=== PATIENT | female | born 1940 | race African-American/Black ===

== ENCOUNTER 2019-02-18 17:20 | Outpatient (CLI) | payer MEDICARE, BC, OTHER ==
--- NOTE | 2019-02-18 17:46 | RAD ---
EXAM: XR Chest Pa Lat STANDARD PROVIDED CLINICAL HISTORY: Pneumonia COMPARISON: 04/13/2014 FINDINGS: Cardiac silhouette remains enlarged. Median sternotomy changes and vascular calcifications are again seen. No lobar consolidation, pleural fluid or pneumothorax apparent. IMPRESSION: No evidence for lobar consolidation.
== END 2019-02-18 17:21 | disposition home or self-care (01) ==
LOC: BURRAD 17:20
PROVIDERS: ATTEND Family Medicine
DX: J18.9 Pneumonia, unspecified organism (principal)
CPT/HCPCS: 71046

== ENCOUNTER 2019-12-17 08:00 | Outpatient (CLI) | payer MEDICARE, MEDICAID ==
--- NOTE | 2019-12-17 16:42 | RAD ---
CHEST 2 VIEWS: Date: 12/17/2019 Comparison made with the prior study of 02/18/2019. Mild to moderate cardiomegaly is present. There is some mild congestion of the upper lobe vessels. So me lingular scarring is seen. There is slight elevation of the left hemidiaphragm. No lobar consolida tions were present. IMPRESSION: Mild congestive change. POS: HOME
== END 2019-12-17 08:01 | disposition home or self-care (01) ==
LOC: BURLAB 08:00 → BURRAD 08:01
PROVIDERS: ATTEND Registered Nurse Community Health
DX: I50.9 Heart failure, unspecified (principal)
CPT/HCPCS: 71046; 83880

== ENCOUNTER 2020-09-30 09:13 | Outpatient (CLI) | payer MEDICARE, MEDICAID ==
[2020-09-30 09:45] LABS: Anion Gap 15 mmol/L (10-20); BUN (Urea Nitrogen) 15 mg/dL (9.8-20.1); Calc. Creatinine Clearance 0 mL/min (70-130); Carbon Dioxide 30 mmol/L (23-31); Chloride 100 mmol/L (98-107); Glucose 143 mg/dL (83-110); Potassium 4.2 mmol/L (3.5-5.1); Sodium 141 mmol/L (136-145)
== END 2020-09-30 09:14 | disposition home or self-care (01) ==
LOC: BURMANOR 09:13
PROVIDERS: ATTEND Family Medicine
DX: E87.6 Hypokalemia (principal)
CPT/HCPCS: 80048

== ENCOUNTER 2021-11-01 08:35 | Outpatient (CLI) | payer MEDICARE, BC, OTHER | END 2021-11-01 08:36 | disposition home or self-care (01) | LOC: BURMANOR 08:35 | PROVIDERS: ATTEND Nurse Practitioner Family | DX: R06.02 Shortness of breath (principal); Z20.822 Contact with and (suspected) exposure to COVID-19 | CPT/HCPCS: U0003; U0005 ==

== ENCOUNTER 2022-01-09 15:25 | Outpatient (CLI) | payer MEDICARE, BC ==
[2022-01-09 15:53] LABS: Bilirubin Negative (Negative); Blood, Urine Negative (Negative); Clarity Cloudy (Clear); Glucose, Urine (Dipstick) 500 mg/dL (Negative); Ketone, Urine Negative (Negative); Leukocyte Small (Negative); Nitrite Positive (Negative); Protein, Urine (Dipstick) Negative (Neg-Trace); Specific Gravity, Urine 1.015 (1.005-1.030); Urobilinogen 0.2 mg/dL (Less than 2); pH, Urine 6.5 (5.0-9.0)
== END 2022-01-09 15:26 | disposition home or self-care (01) ==
LOC: BURMANOR 15:25
PROVIDERS: ATTEND Nurse Practitioner Family
DX: N39.0 Urinary tract infection, site not specified (principal)
CPT/HCPCS: 81003; 87077; 87086; 87186

== ENCOUNTER 2022-01-15 13:29 | Emergency (ER) | payer MEDICARE, BC ==
[2022-01-15 14:44] LABS: Bilirubin Negative (Negative); Blood, Urine Negative (Negative); Clarity Clear (Clear); Glucose, Urine (Dipstick) 250 mg/dL (Negative); Ketone, Urine Negative (Negative); Leukocyte Negative (Negative); Nitrite Negative (Negative); Protein, Urine (Dipstick) Negative (Neg-Trace); Specific Gravity, Urine 1.015 (1.005-1.030); Urobilinogen 0.2 mg/dL (Less than 2)
[2022-01-15] MEDS ORDERED: Phenazopyridine HCl 95 MG TAB ONE (16:05)
== END 2022-01-15 15:03 ==
LOC: BURERS 13:29
DX: R30.0 Dysuria (principal); I25.2 Old myocardial infarction; I11.0 Hypertensive heart disease with heart failure; I50.9 Heart failure, unspecified; I48.91 Unspecified atrial fibrillation; Z86.73 Personal history of transient ischemic attack (TIA), and cerebral infarction without residual deficits
CPT/HCPCS: 81003; 87086; 99283

== ENCOUNTER 2022-01-24 07:31 | Outpatient (CLI) | payer MEDICARE, BC, OTHER ==
[2022-01-24 18:32] LABS: Bilirubin Negative (Negative); Blood, Urine Negative (Negative); Clarity Cloudy (Clear); Glucose, Urine (Dipstick) 500 mg/dL (Negative); Ketone, Urine Negative (Negative); Leukocyte Moderate (Negative); Nitrite Negative (Negative); Protein, Urine (Dipstick) 30 mg/dL (Neg-Trace); Specific Gravity, Urine 1.015 (1.005-1.030); Urobilinogen 0.2 mg/dL (Less than 2); pH, Urine 8.5 (5.0-9.0)
[2022-01-24 18:44] LABS: ALT (SGPT) 36 U/L (8-55); AST (SGOT) 21 U/L (5-34); Albumin 3.8 g/dL (3.4-4.8); Alkaline Phosphatase 92 U/L (40-110); Anion Gap 18 mmol/L (10-20); BUN (Urea Nitrogen) 40 mg/dL (9.8-20.1); Bilirubin, Total 0.2 mg/dL (0.2-1.2); Calc. Creatinine Clearance 0 mL/min (70-130); Carbon Dioxide 26 mmol/L (23-31); Chloride 102 mmol/L (98-107); Estimated GFR 46; Globulin 3.9 g/dL (2.4-3.5); Glucose 175 mg/dL (83-110); Potassium 4.8 mmol/L (3.5-5.1); Protein, Total 7.7 g/dL (5.8-8.1); Sodium 141 mmol/L (136-145)
== END 2022-01-24 07:32 | disposition home or self-care (01) ==
LOC: BURMANOR 07:31
PROVIDERS: ATTEND Nurse Practitioner Family
DX: N39.0 Urinary tract infection, site not specified (principal); E11.9 Type 2 diabetes mellitus without complications
CPT/HCPCS: 80053; 81003; 87077; 87086

== ENCOUNTER 2022-03-12 15:57 | Outpatient (CLI) | payer MEDICARE, BC, OTHER | END 2022-03-12 15:58 | disposition home or self-care (01) | LOC: BURRAD 15:57 | PROVIDERS: ATTEND Family Medicine | DX: M25.551 Pain in right hip (principal); S72.041A Displaced fracture of base of neck of right femur, initial encounter for closed fracture ==